=== PATIENT | male | born 1995 | race Caucasian/White ===

== ENCOUNTER 2021-10-01 02:01 | Observation (INO) ==
[2021-10-01] MEDS ORDERED: 0.9 % Sodium Chloride 1,000 ML IVC SCH ×2 (04:15→10:59)
[2021-10-01] MEDS ORDERED: Morphine Sulfate 2 MG/ML SYRINGE IVP ONE (06:05)
[2021-10-01] MEDS ORDERED: Piperacillin/Tazobactam 3.375 GM in 0.9 % Sodium Chloride Mini Bag 100 ML IVPB SCH (08:00)
[2021-10-01] MEDS ORDERED: Ondansetron 4 MG/2 ML VIAL ONE (08:35)
[2021-10-01] MEDS ORDERED: *HR* Rocuronium Bromide 50 MG/5 ML VIAL ONE ×2 (08:35→09:36)
[2021-10-01] MEDS ORDERED: *HR* Propofol 200 MG/20 ML VIAL IVP ONE ×2 (08:35)
[2021-10-01] MEDS ORDERED: *HR* FentaNYL (PF) 100 MCG/2 ML VIAL ONE (08:35)
[2021-10-01] MEDS ORDERED: *HR* Succinylcholine 200 MG/10 ML VIAL IVP ONE (08:35)
[2021-10-01] MEDS ORDERED: *HR* Midazolam HCl 2 MG/2 ML VIAL ONE (08:35)
[2021-10-01] MEDS ORDERED: Lidocaine -MPF 2% 2 ML VIAL ONE (08:35)
[2021-10-01] MEDS ORDERED: Haloperidol Lactate 5 MG/ML VIAL ONE (08:56)
[2021-10-01] MEDS ORDERED: Naloxone 0.4 MG/ML INJ IVP PRN ×2 (09:05→10:59)
[2021-10-01] MEDS ORDERED: Ondansetron ODT 4 MG TAB.RAPDIS SL PRN ×2 (09:05→10:59)
[2021-10-01] MEDS ORDERED: *HR* HYDROmorphone PF 0.5 MG/0.5 ML SYRINGE IVP PRN (09:13)
[2021-10-01] MEDS ORDERED: Dexmedetomidine HCl 400 MCG/100 ML MLS IVC ONE (09:17)
[2021-10-01] MEDS ORDERED: *HR* Metoprolol 5 MG/5 ML VIAL IVP ONE (09:31)
[2021-10-01] MEDS ORDERED: *HR* HYDROMORPHONE 2 MG/ML VIAL ONE (09:45)
[2021-10-01] MEDS ORDERED: Sugammadex Sodium 200 MG/2 ML VIAL IV ONE (09:56)
[2021-10-01 15:45] VITALS: BP 112/70; PULSE 100; TEMP 98.2; O2SAT 98
[2021-10-02] MEDS ORDERED: hydroCHLOROthiazide 25 MG TABLET PO SCH (09:00)
== END 2021-10-01 18:07 | disposition home or self-care (01) ==
LOC: 3BNU
PROVIDERS: ADMIT Surgery; ATTEND Surgery